=== PATIENT | female | born 1960 | race African-American/Black ===

== ENCOUNTER 2016-06-07 11:12 | Emergency (ER) | payer BC ==
[2016-06-07 11:17] VITALS: BMI 26.1
[2016-06-07] MEDS ORDERED: METOCLOPRAMIDE HCL INJECTION 10 MG/2 ML VIAL IVPUSH ONE (11:53)
[2016-06-07] MEDS ORDERED: SODIUM CHLORIDE 1,000 ML IV ONE (11:53)
--- NOTE | 2016-06-07 11:53 | PDOC ---
History of Present Illness - General History Source: Patient Exam Limitations: No Limitations - History of Present Illness Initial Comments: 06/07/16 12:19 The patient is a 55 year old female, with a significant past medical history of diabetes (on Metformin), who presents to the emergency department with a headache, dizziness and nausea over the past 2-3 days. The patient reports that she has had an intermittent frontal headache for the past 3 days. She states that she woke up this morning at approximately 5AM and felt dizzy so she took her blood sugar, which was 269. She also reports intermittently feeling lightheaded and nauseous this morning, which prompted her to not go to work and to come to the ED for evaluation instead as she did not want to get sick on the train. The patient denies shortness of breath or chest pain. The patient denies fever, chills, vomiting, diarrhea, dysuria, neck pain, back pain, vision changes , numbness/tingling/weakness, constipation or melena/bpr. Allergies: Penicillins Past Surgical History: None reported. Social History: The patient is a teacher in [place]. Non smoker. Denies alcohol or drug use. PCP: Dr. Miranda Bradley <Hayde Shahid - Last Filed: 06/07/16 12:19> <Edwin Quijano - Last Filed: 06/07/16 14:56> - General Chief Complaint: Lightheaded Stated Complaint: DIZZINESS, POSSIBLE HIGH SUGAR (DIABETES) Time Seen by Provider: 06/07/16 11:34 Past History <Hayde Shahid - Last Filed: 06/07/16 12:19> - Past Medical History Diabetes: Yes - Psycho/Social/Smoking Cessation Hx Suicidal Ideation: No Smoking History: Never smoked Hx Alcohol Use: No Drug/Substance Use Hx: No <Edwin Quijano - Last Filed: 06/07/16 14:56> - Past Medical History Allergies/Adverse Reactions: Allergies Allergy/AdvReac Type Severity Reaction Status Date / Time Penicillins AdvReac Verified 06/07/16 11:17 Home Medications: Ambulatory Orders Metformin HCl 500 mg PO BID 06/07/16 Review of Systems - Review of Systems Able to Perform ROS?: Yes Comments:: 06/07/16 12:20 CONSTITUTIONAL: No reported: Fever, Chills, Diaphoresis, Generalized Weakness, Malaise, Loss of Appetite HEENT: No reported: Rhinorrhea, Nasal Congestion, Throat Pain, Throat Swelling, Difficulty Swallowing, Mouth Swelling, Ear Pain, Eye Pain, Visual Changes CARDIOVASCULAR: No reported: Chest Pain, Syncope, Palpitations, Irregular Heart Rate, Peripheral Edema RESPIRATORY: No reported: Cough, Shortness of Breath, SOB with Exertion, Orthopnea, Wheezing , Stridor, Hemoptysis GASTROINTESTINAL: Reported: +Nausea No reported: Abdominal pain, Abdominal Distension, Vomiting, Diarrhea, Constipation, Melena, Hematochezia GENITOURINARY: No reported: Dysuria, Frequency, Urgency, Hesitancy, Flank Pain, Genital Pain MUSCULOSKELETAL: No reported: Myalgia, Arthralgia, Joint Swelling, Back pain, Neck Pain SKIN: No reported: Rash, Itching, Pallor HEMATOLOGIC/IMMUNOLOGIC: No reported: Easy Bleeding, Easy Bruising, Lymphadenopathy, Frequent infections ENDOCRINE: No reported: Unexplained Weight Gain, Unexplained Weight Loss, Heat Intolerance , Cold Intolerance NEUROLOGIC: Reported: +Headache, Lightheadedness No reported: Focal Weakness, Paresthesias, Vertigo, , Unsteady Gait, Seizure, Mental Status Changes, Incontinence PSYCHIATRIC: No reported: Anxiety, Depression <Hayde Shahid - Last Filed: 06/07/16 12:19> *Physical Exam - Vital Signs Last Vital Signs Temp Pulse Resp BP Pulse Ox 97.8 F 73 16 135/77 98 06/07/16 11:15 06/07/16 11:15 06/07/16 11:15 06/07/16 11:15 06/07/16 11:39 - Physical Exam Comments: 06/07/16 12:21 GENERAL: The patient is awake, alert, and fully oriented, nontoxic - in no acute distress. HEAD: Normocephalic, atraumatic. EYES: Extraocular movements intact, sclera anicteric, conjunctiva clear. ENT: Normal voice, moist mucous membranes. NECK: Normal range of motion, supple. LUNGS: Breath sounds equal, clear to auscultation bilaterally. No wheezes, no rhonchi, no rales. HEART: Regular rate and rhythm, without murmur, rub or gallop. ABDOMEN: Soft, nontender, normoactive bowel sounds. No guarding, no rebound. No CVA tenderness EXTREMITIES: Normal range of motion, no edema. No clubbing or cyanosis. No cords , erythema, or tenderness. NEUROLOGICAL: No facial asymmetry. Normal speech. PSYCH: Normal mood, normal affect. SKIN: Warm, dry, normal turgor. <Hayde Shahid - Last Filed: 06/07/16 12:19> - Vital Signs Last Vital Signs Temp Pulse Resp BP Pulse Ox 97.8 F 73 16 135/77 98 06/07/16 11:15 06/07/16 11:15 06/07/16 11:15 06/07/16 11:15 06/07/16 11:39 <Edwin Quijano - Last Filed: 06/07/16 14:56> ED Treatment Course - LABORATORY CBC & Chemistry Diagram: 06/07/16 11:50 06/07/16 11:50 - ADDITIONAL ORDERS Additional order review: Laboratory Results 06/07/16 06/07/16 11:50 11:45 VBG pH 7.41 POC VBG pCO2 36.4 L POC VBG pO2 76.6 H Magnesium 1.7 L 06/07/16 11:50 RBC 4.80 MCV 83.8 MCHC 33.5 RDW 13.9 MPV 7.9 Neutrophils % 55.7 Lymphocytes % 36.6 Monocytes % 5.0 Eosinophils % 1.7 Basophils % 1.0 - Medications Given in the ED: ED Medications Discontinued Medications Generic Name Dose Route Start Last Admin Trade Name Mando PRN Reason Stop Dose Admin Metoclopramide HCl 10 mg 06/07/16 11:53 06/07/16 11:55 Reglan Injection - IVPUSH 06/07/16 11:54 10 mg ONCE ONE Administration <Hayde Shahid - Last Filed: 06/07/16 12:19> - LABORATORY CBC & Chemistry Diagram: 06/07/16 11:50 06/07/16 11:50 <Edwin Quijano - Last Filed: 06/07/16 14:56> Medical Decision Making - Medical Decision Making 06/07/16 12:04 55y F hx of dm presents with feeling lightheaded, mild headache, feeling nausus this morning, pt states headache is gradual onste, similar in nature to her chronic headache she gets every few days, no asociated neurologic complaints includes vision changes numbness/tingling/weakness. pts exam unreamrakble. vitals normal suspect tension headache will give her reglan/fluids will r/o dka will reassess 06/07/16 14:53 labs reviewed no signs of dka pts noted hyperglycemic, improved after 1L of NS to 252 pt renetta maynard will d/c with pmd fu and darlene tof her diabetes I discussed the physical exam findings, ancillary test results and final diagnoses with the patient. I answered all of the patient's questions. The patient was satisfied with the care received and felt comfortable with the discharge plan and treatment plan. The patient will call their primary care physician within 24 hours to arrange follow-up and will return to the Emergency Department with any new, persistent or worsening symptoms. <Edwin Quijano - Last Filed: 06/07/16 14:56> *DC/Admit/Observation/Transfer - Attestations Scribe Attestion: 06/07/16 12:21 Documentation prepared by Hayde Shahid, acting as medical hospital sales for Edwin Quijano MD. <Hayde Shahid - Last Filed: 06/07/16 12:19> - Discharge Dispostion Admit: No <Edwin Quijano - Last Filed: 06/07/16 14:56> Diagnosis at time of Disposition: Hyperglycemia, Nausea - Discharge Dispostion Disposition: HOME Condition at time of disposition: Improved - Referrals Referrals: Miranda Bradley MD [Primary Care Provider] - - Patient Instructions Printed Discharge Instructions: DI for Hormonal and Tension Headaches, DI for Hyperglycemia -- Adult Additional Instructions: Return to the emergency department immediately with ANY new, persistent or worsening symptoms. You MUST call and follow up with your doctorwithin 2-3 days for further evaluation of your diabetes. Results were discussed with you. Please make sure your doctor reviews the results of your emergency evaluation. If you had any xrays during your visit, it was read preliminarily by myself, a Radiologist will review it and if there are any additional findings we will call you. Print Language: TAJIK
[2016-06-07] MEDS ORDERED: METOCLOPRAMIDE HCL INJECTION 10 MG/2 ML VIAL ONE (11:59)
[2016-06-07 12:00] LABS: VENOUS PH 7.41 (7.31-7.41)
[2016-06-07 12:00] LABS: EOSINOPHIL 1.7 % (0-4.5); MCH 28.1 pg (25.7-33.7); MCHC 33.5 g/dl (32.0-36.0); MEAN CELL VOLUME 83.8 fl (80-96); MEAN PLT VOLUME 7.9 fl (7.5-11.1); NEUTROPHILS 55.7 % (42.8-82.8); PLATELET COUNT 279 K/MM3 (134-434); RDW 13.9 % (11.6-15.6); WHITE BLOOD COUNT 6.5 K/mm3 (4.0-10.0)
[2016-06-07 12:01] LABS: VENOUS BLOOD GAS HCO3 22.7 meq/L (22-29)
[2016-06-07 12:22] LABS: BILIRUBIN,TOTAL 0.7 mg/dL (0.2-1.0); CALCIUM 9.1 mg/dL (8.5-10.1); CREATININE 1.1 mg/dL (0.55-1.02); TOT PROT 8.3 g/dl (6.4-8.2)
[2016-06-07] MEDS ORDERED: HEMOQUE TEST 1 EACH EACH ONE (14:47)
[2016-06-07 15:23] VITALS: BP 125/80; PULSE 87; TEMP 98.1
--- NOTE | 2016-06-08 00:22 | EKG ---
Test Reason : Blood Pressure : / mmHG Vent. Rate : 063 BPM Atrial Rate : 063 BPM P-R Int : 156 ms QRS Dur : 084 ms QT Int : 430 ms P-R-T Axes : 037 -33 -19 degrees QTc Int : 440 ms NORMAL SINUS RHYTHM LEFT AXIS DEVIATION VOLTAGE CRITERIA FOR LEFT VENTRICULAR HYPERTROPHY NONSPECIFIC T WAVE ABNORMALITY ABNORMAL ECG NO PREVIOUS ECGS AVAILABLE Confirmed by GILBERT SINGH MD ([id number]) on 06/08/2016 12:21:48 AM Referred By: Confirmed By:GILBERT SINGH MD
== END 2016-06-07 15:44 | disposition home or self-care (01) ==
LOC: JER 11:12
PROC: 3E033GC Introduction of Other Therapeutic Substance into Peripheral Vein, Percutaneous Approach (ICD-10-PCS; principal; 2016-06-07)
PROC: 3E0337Z Introduction of Electrolytic and Water Balance Substance into Peripheral Vein, Percutaneous Approach (ICD-10-PCS; 2016-06-07)
DX: R73.9 Hyperglycemia, unspecified (principal); R11.0 Nausea
CPT/HCPCS: 36415; 80053; 82803; 83735; 85025; 93005; 93010; 99283-25

== ENCOUNTER 2018-05-12 06:15 | Day surgery (SDC) | payer BC ==
[2018-05-03 15:29] VITALS: BMI 25.3
[2018-05-12] MEDS ORDERED: MIDAZOLAM HCL 2 MG/2 ML SINGLE DOSE VIAL ONE (07:16)
[2018-05-12] MEDS ORDERED: PROPOFOL 20 ML ONE ×6 (07:16→08:30)
[2018-05-12] MEDS ORDERED: SUCCINYLCHOLINE CHLORIDE 200 MG/10 ML VIAL ONE (07:16)
[2018-05-12] MEDS ORDERED: BUPIVACAINE HCL/PF 0.5% (5MG/ML) 10 ML VIAL ONE (07:28)
[2018-05-12] MEDS ORDERED: LIDOCAINE HCL 2% (20ML MULTI-DOSE VIAL) NR ONE (07:28)
[2018-05-12] MEDS ORDERED: BUPIVACAINE HCL/PF 0.5% (5MG/ML) 10 ML VIAL IJ ONE (07:57)
[2018-05-12] MEDS ORDERED: LIDOCAINE HCL 2% (50ML VIAL) INF ONE (07:57)
[2018-05-12] MEDS ORDERED: ceFAZolin SODIUM 1 GM VIAL ONE (08:04)
[2018-05-12] MEDS ORDERED: KETOROLAC TROMETHAMINE 30 MG/1 ML VIAL ONE (08:04)
[2018-05-12] MEDS ORDERED: ONDANSETRON 4 MG/2 ML VIAL ONE (08:04)
[2018-05-12] MEDS ORDERED: DEXAMETHASONE SOD PHOSPHATE 4 MG/1 ML VIAL ONE (08:04)
[2018-05-12] MEDS ORDERED: ePHEDrine SULFATE 50 MG/1 ML AMPULE ONE (08:05)
[2018-05-12] MEDS ORDERED: PROMETHAZINE HCL 25 MG/1 ML VIAL IVPUSH PRN (09:59)
[2018-05-12] MEDS ORDERED: oxyCODONE HCL 5 MG TABLET PO PRN ×2 (09:59)
[2018-05-12] MEDS ORDERED: ACETAMINOPHEN 325 MG TABLET (FP) PO PRN (09:59)
[2018-05-12] MEDS ORDERED: ONDANSETRON 4 MG/2 ML VIAL IVPUSH PRN (09:59)
[2018-05-12 10:33] VITALS: TEMP 97.4
[2018-05-12 13:32] VITALS: BP 126/82; PULSE 79
--- NOTE | 2018-05-16 07:38 | OP ---
DATE OF OPERATION: 05/12/2018 PREOPERATIVE DIAGNOSES: 1. 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 2. Painful Left foot 2nd digit hammertoe. 3. 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 4. Painful Left foot metatarsalgia. 5. 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 POSTOPERATIVE DIAGNOSES: 1. 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 2. Painful Left foot 2nd digit hammertoe. 3. 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 4. Painful Left foot metatarsalgia. 5. 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 SURGEON: Ronnie Kimbrough DPM ANESTHESIA: Local with MAC. PROCEDURE: 1. Left foot Kobe bunionectomy. 2. Left foot Paloma osteotomy. 3. Left foot 2nd digit proximal interphalangeal joint arthrodesis. 4. Layered closure. 5. Postoperative injection. HEMOSTASIS: Pneumatic ankle tourniquet set at 250 mmHg. ESTIMATED BLOOD LOSS: Minimal. Pathology: Bone and soft tissue. MATERIALS: 2.0 x 20 mm OsteoMed screw, 2.0 x 12 mm OsteoMed screw, 2.0 x 10 mm OsteoMed ExtremiFix implant, 3-0 Vicryl, 4-0 Vicryl, and 5-0 nylon. INJECTABLES: Preoperatively 20 mL of 1:1 mixture of 2% lidocaine plain and 0.5% Marcaine plain; postoperatively 10 mL of an 8:2 mixture of 0.5% Marcaine plain and Decadron. COMPLICATIONS: None. CONDITION: Stable. Patient was brought to the operating room and placed on the operating table in the supine position, and a well-padded pneumatic ankle tourniquet was then placed on the patient's left ankle. Following IV sedation, local anesthesia was obtained utilizing 20 mL of 1:1 mixture of 0.5% Marcaine and 2% lidocaine plain. The left foot was then scrubbed, prepped, and draped in the usual aseptic manner. An Esmarch bandage was then utilized to exsanguinate the patient's left foot, and the tourniquet was then inflated. An approximately 4-cm linear longitudinal incision was made dorsomedially over the 1st metatarsophalangeal joint medial and parallel to the extensor hallucis longus tendon. The incision was then deepened through the subcutaneous tissues to the capsular level using sharp and blunt dissection. Care was taken to identify and retract all vital neural and vascular structures. All bleeders were ligated and cauterized as necessary. The capsule was then visualized, and a linear capsulotomy was performed. The periosteal and capsular structures were then carefully dissected free and reflected medially and laterally, thus exposing the head of the 1st metatarsal. Utilizing a sagittal saw, the medial prominence of the 1st metatarsal head was resected and passed from the operative field. The hip was then externally rotated and the knee flexed so that the medial surface of the foot faced superior for better visualization of the Kobe procedure. A [id number]-[id number] V-type osteotomy was then created utilizing a sagittal bone saw with the apex going distally and dorsal arm slightly longer than the plantar arm to accommodate fixation. The capital fragment was then shifted laterally into an improved position and was then impacted on the head of the metatarsal shaft. A 0.062-inch K-wire was then driven across the osteotomy site for temporary fixation and another K-wire from the OsteoMed set was driven across the osteotomy site and placement was confirmed under fluoroscopy. Next, a 2.0 x 20 mm screw was then inserted across the osteotomy site using standard AO technique, providing excellent compression and fixation. Position of the screw was confirmed under fluoroscopy and was noted to be in excellent position. Both K-wires were then removed and passed from the operative field. All rough edges of bone were then resected and smoothed using power equipment, and the bunion deformity was noted to be vastly improved. Medial capsulorrhaphy was then performed to further enhance the correction. The surgical site was then flushed with copious amounts of sterile saline, and the periosteal and capsular structures were reapproximated using 2-0 Vicryl. Redundant capsular tissue was resected as needed, and the subcutaneous tissue was then closed with 4-0 Vicryl. Skin edges were then coapted using 5-0 nylon. Attention was then directed to the left foot 2nd digit which was noted to be dorsally dislocated at the level of the metatarsophalangeal joint with resultant hammertoe deformity and intractable plantar keratoma formation under the head of the 2nd metatarsal. Attention was then directed over the neck and head of the left foot 2nd metatarsal where an approximately 3-cm linear longitudinal incision was placed directly over the 2nd metatarsal phalangeal joint. The incision was then deepened through the subcutaneous tissues to the capsular level using sharp and blunt dissection. All bleeders were ligated and cauterized as necessary. The capsule was visualized, and a linear capsulotomy was performed. The periosteal and capsular structures were then carefully dissected free and reflected medially and laterally, thus exposing the head of the 2nd metatarsal. A McGlamry elevator was then used to free up the 2nd metatarsophalangeal joint to release contracture. At this point, a Paloma osteotomy was performed from dorsal distal to plantar proximal to the surgical neck of the 2nd metatarsal of the left foot. Capital fragment was then transposed proximally and impacted on the shaft of the metatarsal. Next, a 2.0 x 12 mm screw was then used to fixate the osteotomy using standard AO technique. Fixation of the osteotomy with the screw was found to be excellent, and position was confirmed under fluoroscopy. A rongeur was then used to remove any overhanging bone from the transposition of the capital fragment. Range of motion of the 2nd metatarsal joint was found to be excellent. Attention was then directed to the level of the proximal interphalangeal joint of the 2nd digit where 2 horizontal, semi-elliptical, converging incisions were placed directly over the proximal interphalangeal joint. The ellipse of skin was removed with sharp and blunt dissection and passed from the operative field. All bleeders were ligated and cauterized as necessary. Then, a transverse tenotomy and capsulotomy and medial and lateral collateral ligament release was performed to the proximal interphalangeal joint of the 2nd digit. This adequately exposed the head of the proximal phalanx as well as the base of the middle phalanx. The head of the proximal phalanx was then freed of its soft tissue attachments. A sagittal saw was then used to resect the head of the proximal phalanx which was then passed from the operative field. Using a sagittal saw, the articular cartilage was also removed from the base of the middle phalanx as well. A 0.035-inch K-wire was then used to drill the middle phalanx and placement was confirmed under fluoroscopy and the K-wire was then removed. Next, 0.035-inch K-wire was then driven into the proximal phalanx and position confirmed under fluoroscopy. A 2.0 x 10 mm ExtremiFix implant was then driven into the proximal phalanx as per marine service station attendant guidelines. The K-wire was then removed, and the brendan of implant was then press fitted into the middle phalanx. At this time, there was still resultant contracture at the metatarsophalangeal joint; so, the extensor tendons were then transected at the level of the metatarsophalangeal joint. All surgical areas were copiously flushed with sterile saline. All capsular and periosteal tissues were then reapproximated using 2-0 Vicryl, 4-0 Vicryl was then used to reapproximate the subcutaneous tissues, and 5-0 nylon was used to coapt the skin. Upon completion of the procedure, a total of 10 mL of an 8:2 mixture of 0.5% Marcaine and Decadron was then infiltrated to all surgical sites. The incision sites were dressed with Xeroform and covered with sterile compressive dressing consisting of 4 x 4's, gauze, Fernando, and abdominal pads. The tourniquet was then deflated , and immediate hyperemia returned to all digits of the left foot. Coban was then applied to the left foot. Patient tolerated the procedure well and was transported from the operating room to the recovery room with all vital signs stable and neurovascular status intact to the left foot. Following a period of postoperative monitoring , the patient will be discharged as per anesthesia guidelines and given instructions and prescriptions which were discussed prior to the surgery. Patient will follow up in 1 week in private office. RYAN ANDERSEN/[id number] ANIYAH
--- NOTE | 2018-05-16 17:05 | PATH ---
Surgical Pathology Report Patient Name: NARCISA HAYNES [facility]. Rec. #: [id number] /Age/Gender: 1960 (Age: 57) / F Account: [id number] Location: [facility] AMBULATORY Taken: 05/12/2018 Received: 05/12/2018 Reported: 05/16/2018 Physicians: Ronine Kimbrough DPM Specimen(s) Received BONE AND SOFT TISSUE LEFT SECOND TOE Clinical History Left second toe bunion/hammertoe Final Diagnosis BONE AND SOFT TISSUE LEFT SECOND TOE, EXCISION: FRAGMENTS OF BONE AND FIBROCONNECTIVE TISSUE WITH DEGENERATIVE CHANGE. SEGMENT OF ACRAL SKIN WITH NO DIAGNOSTIC ABNORMALITIES. Electronically Signed Amber Pop M.D. Gross Description Received in formalin labeled "bone and soft tissue left second toe," is a 2.4 x 2.1 x 0.6 cm aggregate of cunningham portions of bone, soft tissue and skin. White Spooler sections are submitted in one cassette, following decalcification. 05/15/2018 [facility]05/15/2018
== END 2018-05-12 13:15 | disposition home or self-care (01) ==
LOC: FASU 06:15
PROVIDERS: ATTEND Podiatrist
PROC: 0SRQ0JZ Replacement of Left Toe Phalangeal Joint with Synthetic Substitute, Open Approach (ICD-10-PCS; 2018-05-12)
PROC: 0QSP04Z Reposition Left Metatarsal with Internal Fixation Device, Open Approach (ICD-10-PCS; principal; 2018-05-12 07:30)
DX: M20.12 Hallux valgus (acquired), left foot (principal); M20.42 Other hammer toe(s) (acquired), left foot; L57.0 Actinic keratosis; M77.42 Metatarsalgia, left foot; M24.575 Contracture, left foot
CPT/HCPCS: 73630-TC-LT; 82962; 88304-TC; 88311-TC